=== PATIENT | male | born 1970 | race African-American/Black ===

== ENCOUNTER → 2018-03-11 | Outpatient (CLI) | payer BC ==
[~2018-03-11] MED LIST: LIDOCAINE-MPF 1%, 5ML ONE
== END ==
LOC: RAD 09:36
PROVIDERS: ATTEND Internal Medicine Hematology & Oncology
DX: Z45.2 Encounter for adjustment and management of vascular access device (principal); Z51.11 Encounter for antineoplastic chemotherapy
CPT/HCPCS: 36569; 76937; 77001; C1751

== ENCOUNTER 2018-03-13 10:03 | Emergency (ER) | payer SELFPAY ==
[~2018-03-13] VITALS: Ht 175.3 cm; Wt 80.0 kg
[2018-03-13 11:07] LABS: ALANINE AMINOTRANSFERASE 29 U/L (12-78); ALBUMIN 3.8 g/dL (3.4-5.0); ANION GAP 5 mmol/L (5-15); CALCIUM 8.2 mg/dL (8.5-10.1); CHLORIDE 112 mmol/L (98-107); CREATININE 0.89 mg/dL (0.7-1.3)
[2018-03-13 11:09] LABS: ALKALINE PHOSPHATASE 145 U/L (45-117); BILIRUBIN,TOTAL 0.3 mg/dL (0.2-1.0); TOTAL PROTEIN 6.2 g/dL (6.4-8.2)
[2018-03-13 11:20] LABS: RED BLOOD COUNT 2.48 x10^6/uL (4.38-5.82)
[2018-03-13 11:26] LABS: MEAN CORPUSCULAR HEMOGLOBIN 32.8 pg (27.5-34.5); MEAN CORPUSCULAR HGB CONC 32.5 g/dL (33.2-36.2); MEAN CORPUSCULAR VOLUME 100.9 fL (81-97); MEAN PLATELET VOLUME 8.6 fL (7.4-10.4); RED CELL DISTRIBUTION WIDTH 21.6 % (9.4-14.8)
[2018-03-13] MEDS ORDERED: TBO-FILGRASTIM 480 MCG/0.8 ML SQ ONE (11:30)
[2018-03-13 11:39] LABS: PLATELET COUNT 38 x10^3/uL (130-400)
[2018-03-13 11:57] LABS: ALBUMIN 3.7 g/dL (3.4-5.0); ANION GAP 2 mmol/L (5-15); CALCIUM 8.3 mg/dL (8.5-10.1); CHLORIDE 113 mmol/L (98-107); CREATININE 0.92 mg/dL (0.7-1.3)
[2018-03-13 12:22] LABS: MD YES
[2018-03-13 12:34] LABS: LYMPH#(MANUAL) 172.35 x10^3/uL (1-3.4); LYMPHS% (MANUAL) 90 % (22-44); MONOS#(MANUAL) 3.83 x10^3/uL (0.3-2.7); MONOS% (MANUAL) 2 % (2-9); SEG#(MANUAL) 3.83 x10^3/uL (1.8-6.8); SEGS% (MANUAL) 2 % (42-75)
[2018-03-13 12:45] LABS: ANISOCYTOSIS 1+; OTHER CELLS # (MANUAL) 11.49 x10^3/uL (0-0)
[2018-03-13 12:46] LABS: OVALOCYTES 1+
[2018-03-13 12:49] LABS: <PLATELET ESTIMATE> DECREASED; HYPOGRAN PLTS 1+
[2018-03-13 12:50] LABS: SMUDGE CELLS 1+
[2018-03-13 12:53] LABS: OTHER CELLS % (MANUAL) 6 % (0-0)
[2018-03-13 13:44] VITALS: BP 114/66
[2018-03-13 14:04] VITALS: BP 119/71
[2018-03-13 15:35] VITALS: BP 104/65
[2018-03-13 15:50] VITALS: BP 113/73
[2018-03-13 16:08] VITALS: BP 133/70
[2018-03-13 18:32] VITALS: BP 122/78
== END 2018-03-13 18:34 | disposition home or self-care (01) ==
LOC: ED 18:28
DX: C91.10 Chronic lymphocytic leukemia of B-cell type not having achieved remission (principal); D64.9 Anemia, unspecified; D69.59 Other secondary thrombocytopenia; E87.5 Hyperkalemia; Z88.0 Allergy status to penicillin
CPT/HCPCS: 36415; 80048; 80053; 82040; 85025; 86850; 86900; 86923; 93005; 99285; P9040